=== PATIENT | female | born 1990 | race Two or more races ===

== ENCOUNTER 2023-01-16 16:06 | Emergency (ER) | payer MEDICAID ==
[~2023-01-16] VITALS: Ht 165.1 cm; Wt 79.4 kg
--- NOTE | 2023-01-16 16:24 | NUR ---
GENERALIZED BODY PAIN WORST TO NECK AND R KNEE PAIN S/P GLF WHILE HIKING 2 WEEKS AGO. VITALS ARE WITHIN NORMAL LMITS.
--- NOTE | 2023-01-16 16:42 | NUR ---
PT TAKEN TO CT VIA [facility]
[2023-01-16] MEDS ORDERED: KETOROLAC TROMETHAMINE INJ 60 MG/2 ML VIAL IM ONE (17:00)
[2023-01-16] MEDS ORDERED: KETOROLAC TROMETHAMINE INJ 30 MG/ML VIAL ONE (17:06)
[2023-01-16] MEDS ORDERED: CYCL10TA9 PO (17:51)
[2023-01-16] MEDS ORDERED: NAPR500T6 PO (17:51)
--- NOTE | 2023-01-16 17:57 | NUR ---
Patient discharged to home in stable condition. Written and verbal after care instructions given. Patient verbalizes understanding of instruction.
[2023-01-16 17:58] VITALS: BP 127/73
== END 2023-01-16 17:58 | disposition home or self-care (01) ==
LOC: ER 16:14
DX: S16.1XXA Strain of muscle, fascia and tendon at neck level, initial encounter (principal); S66.812A Strain of other specified muscles, fascia and tendons at wrist and hand level, left hand, initial encounter; S76.811A Strain of other specified muscles, fascia and tendons at thigh level, right thigh, initial encounter; S39.012A Strain of muscle, fascia and tendon of lower back, initial encounter; Z79.899 Other long term (current) drug therapy; Z91.040 Latex allergy status; W17.89XA Other fall from one level to another, initial encounter; Y93.01 Activity, walking, marching and hiking; Y92.89 Other specified places as the place of occurrence of the external cause; Y99.8 Other external cause status
CPT/HCPCS: 99284; 96372; 72040; 73521; 72100; 73080; 73564; J1885

== ENCOUNTER 2023-04-14 19:50 | Emergency (ER) | payer MEDICAID ==
[~2023-04-14] VITALS: Ht 165.1 cm; Wt 80.7 kg
[~2023-04-14 19:50] MED LIST: CYCL10TA9 PO; NAPR500T6 PO
[2023-04-14] MEDS ORDERED: CYCLOBENZAPRINE 10 MG TABLET ONE (23:30)
[2023-04-14] MEDS ORDERED: KETOROLAC TROMETHAMINE INJ 30 MG/ML VIAL ONE (23:30)
[2023-04-14] MEDS: CYCLOBENZAPRINE 10 MG TABLET PO ONE (23:35)
[2023-04-14] MEDS: KETOROLAC TROMETHAMINE INJ 60 MG/2 ML VIAL IM ONE (23:35)
[2023-04-15] MEDS ORDERED: IBUP-1955 PO (00:03)
[2023-04-15] MEDS ORDERED: CYCL10TA9 PO (00:03)
[2023-04-15 02:09] VITALS: BP 114/74; TEMP 98.1; O2SAT 100
== END 2023-04-15 02:10 | disposition home or self-care (01) ==
LOC: ER 19:53
DX: S16.1XXA Strain of muscle, fascia and tendon at neck level, initial encounter (principal); S39.012A Strain of muscle, fascia and tendon of lower back, initial encounter; Z79.899 Other long term (current) drug therapy; Z60.2 Problems related to living alone; Z91.040 Latex allergy status; V89.2XXA Person injured in unspecified motor-vehicle accident, traffic, initial encounter; Y93.89 Activity, other specified; Y92.89 Other specified places as the place of occurrence of the external cause; Y99.8 Other external cause status
CPT/HCPCS: 99284; 96372; 72050; 72110; J1885